=== PATIENT | female | born 1945 | race Caucasian/White ===

== ENCOUNTER 2023-03-11 16:12 | Inpatient (IN) | payer MEDICARE, OTHER ==
[~2023-03-11] VITALS: Ht 160 cm; Wt 49.9 kg
[2023-03-11 16:27] VITALS: BP 101/53; PULSE 102; RESP 18; TEMP 97
[2023-03-11] MEDS ORDERED: LIDOCAINE 5% 1 EA PATCH TP ONE (16:45)
[2023-03-11] MEDS ORDERED: ACETAMINOPHEN 325 MG TAB PO ONE (16:45)
[2023-03-11 20:21] LABS: BASOPHILS % (AUTO) 0.3 % (0.0-2.0); EOSINOPHILS # (AUTO) 0.1 K/uL (0-0.4); EOSINOPHILS % (AUTO) 0.6 % (0.0-4.0); HEMATOCRIT 36.8 % (36-48); HEMOGLOBIN 12.2 g/dL (12.0-16.0); LYMPHOCYTES # (AUTO) 1.7 K/uL (2.5-16.5); LYMPHOCYTES % (AUTO) 14.5 % (20.5-51.1); MEAN CORPUSCULAR HEMOGLOBIN 30 pg (27-31); MEAN CORPUSCULAR HGB CONC 33 g/dL (33-37); MEAN CORPUSCULAR VOLUME 91.2 fL (80-94); MONOCYTES # (AUTO) 1.3 K/uL (0.8-1.0); MONOCYTES % (AUTO) 10.6 % (1.7-9.3); NEUTROPHILS # (AUTO) 8.8 K/uL (1.8-7.7); PLATELET COUNT (AUTO) 197 K/uL (140-450); RED BLOOD CELL COUNT(AUTO) 4.03 MIL/uL (4.20-5.40); RED CELL DISTRIBUTION WIDTH 14.1 % (11.6-13.7); WHITE BLOOD COUNT (AUTO) 11.9 K/uL (4.8-10.8)
[2023-03-11 20:47] LABS: LACTIC ACID 0.8 mmol/L (0.4-2.0)
[2023-03-11 20:58] LABS: ALANINE AMINOTRANSFERASE 16 U/L (12-78); ALBUMIN 2.8 g/dL (3.4-5.0); ALKALINE PHOSPHATASE 107 U/L (50-136); ASPARTATE AMINOTRANSFERASE 20 U/L (15-37); CALCIUM 9.8 mg/dL (8.5-10.1); CARBON DIOXIDE 19.2 mmol/L (21-32); CHLORIDE 107 mmol/L (98-107); CREATININE 1.3 mg/dL (0.6-1.3); GLUCOSE 119 mg/dL (74-106); POTASSIUM 3.2 mmol/L (3.5-5.1); SODIUM SERUM 137 mmol/L (136-145); TOTAL BILIRUBIN 0.7 mg/dL (0.0-1.0); TOTAL PROTEIN, SERUM 6.8 g/dL (6.4-8.2); UREA NITROGEN, BLOOD 21 mg/dL (7-18)
[2023-03-11 20:58] LABS: BILIRUBIN,URINE NEGATIVE (NEGATIVE); BLOOD, URINE 2+ (NEGATIVE); COLOR,URINE YELLOW (YELLOW); LEUKOCYTE ESTERASE ,URINE 3+ (NEGATIVE); NITRITE, URINE POSITIVE (NEGATIVE); PROTEIN,URINE TRACE (NEGATIVE); UGLUCOSE NEGATIVE (NEGATIVE); UROBILINOGEN,URINE 0.2 EU/dL (0.2 - 1)
[2023-03-11 21:02] LABS: APPEARANCE,URINE CLOUDY (CLEAR)
[2023-03-11 21:24] LABS: RBC,URINE 0-5 /HPF (0-5); WBC,URINE 20-60 /HPF (0-5)
[2023-03-11 21:25] LABS: BACTERIA,URINE 3+ /HPF (None Seen); SQUAMOUS EPITHELIAL CELL,UR 0-3 (FEW) /LPF (0-3 (FEW))
[2023-03-11] MEDS ORDERED: cefTRIAXone 1,000 MG VIAL ONE (22:00)
[2023-03-11] MEDS ORDERED: ACETAMINOPHEN EXTRA STRENGTH 500 MG TAB PO ONE (23:15)
[2023-03-11] MEDS ORDERED: NACL 0.9% 1,000 ML IV ONE (23:15)
[2023-03-12] MEDS ORDERED: NACL 0.9% 1,000 ML IV ONE (01:45)
[2023-03-12] MEDS ORDERED: BUS5 PO (04:25)
[2023-03-12] MEDS ORDERED: ESCI5SOL PO (04:25)
[2023-03-12] MEDS ORDERED: ANAS1TAB56 PO (04:25)
[2023-03-12] MEDS ORDERED: OINT1OIN48 TP (04:25)
[2023-03-12] MEDS ORDERED: LOTC TP (04:25)
[2023-03-12] MEDS ORDERED: ATOR10TA51 PO (04:25)
[2023-03-12] MEDS ORDERED: BUPR-10 PO (04:25)
[2023-03-12] MEDS ORDERED: [UNRECOGNIZED DRUG - CODE] PO (04:25)
[2023-03-12] MEDS ORDERED: FAMO-90 PO (04:25)
[2023-03-12] MEDS ORDERED: OMEP-278 PO (04:25)
[2023-03-12] MEDS ORDERED: guaiFENesin DM 200/20 MG-10 ML 10 ML UDC PO PRN (06:35)
[2023-03-12] MEDS ORDERED: POTASSIUM CHLORIDE 10 MEQ TABER PO PRN ×2 (06:35→07:30)
[2023-03-12] MEDS ORDERED: DOCUSATE SODIUM 100 MG GELCAP PO PRN ×2 (06:35→07:30)
[2023-03-12] MEDS ORDERED: ONDANSETRON 4 MG/2 ML VIAL IM/IVP PRN (06:35)
[2023-03-12] MEDS ORDERED: ZOLPIDEM 5 MG TAB PO PRN (06:35)
[2023-03-12] MEDS ORDERED: ACETAMINOPHEN 325 MG TAB PO PRN ×2 (06:35→07:30)
[2023-03-12] MEDS ORDERED: HYDROcodone/APAP 7.5/325 MG 1 TAB PO PRN (06:35)
[2023-03-12] MEDS ORDERED: LEVOTHYROXINE SODIUM 125 MCG PO SCH (07:05)
[2023-03-12] MEDS ORDERED: ESCITALOPRAM OXALATE 20 MG PO SCH (07:05)
[2023-03-12] MEDS ORDERED: MAG SULF 2000 MG/WATER PREMIX 50 ML IV PRN (07:30)
[2023-03-12] MEDS ORDERED: LEVOTHYROXINE 0.025 MG, LEVOTHYROXINE 0.1 MG PO SCH ×2 (07:30)
[2023-03-12] MEDS ORDERED: ESCITALOPRAM 20 MG TAB PO SCH (07:30)
[2023-03-12] MEDS ORDERED: LORazepam 2 MG/ML VIAL IVP PRN (07:30)
[2023-03-12] MEDS ORDERED: ZOLPIDEM 10 MG TAB PO PRN (07:30)
[2023-03-12] MEDS ORDERED: MORPHINE SULFATE 2 MG/ML SYR IVP PRN (07:30)
[2023-03-12] MEDS ORDERED: ONDANSETRON 4 MG/2 ML VIAL IVP PRN (07:30)
[2023-03-12 07:54] VITALS: O2SAT 99
[2023-03-12] MEDS ORDERED: POTASSIUM CHLORIDE 10 MEQ TABER PO SCH (08:08)
[2023-03-12 09:00] VITALS: PULSE 67; RESP 18; O2SAT 98
[2023-03-12] MEDS ORDERED: BUPROPION HCL 100 MG PO SCH (09:00)
[2023-03-12] MEDS ORDERED: NON-FORMULARY ITEM (Atorvastatin Calcium 1 TAB) PO SCH (09:00)
[2023-03-12] MEDS ORDERED: PANTOPRAZOLE 40 MG TABEC PO SCH (09:00)
[2023-03-12] MEDS ORDERED: ATORVASTATIN 20 MG TAB PO SCH (09:00)
[2023-03-12] MEDS ORDERED: FAMOTIDINE 20 MG TAB PO SCH (09:00)
[2023-03-12] MEDS ORDERED: buPROPion 100 MG TAB PO SCH ×2 (09:12→21:00)
[2023-03-12] MEDS: NACL 0.9% 1,000 ML IV SCH ×2 (09:13→21:04)
[2023-03-12] MEDS: busPIRone 5 MG TAB PO SCH ×2 (09:15→21:05)
[2023-03-12 09:31] LABS: BASOPHILS % (AUTO) 0.5 % (0.0-2.0); EOSINOPHILS # (AUTO) 0.2 K/uL (0-0.4); EOSINOPHILS % (AUTO) 3.2 % (0.0-4.0); HEMATOCRIT 35.7 % (36-48); HEMOGLOBIN 11.8 g/dL (12.0-16.0); LYMPHOCYTES # (AUTO) 1.1 K/uL (2.5-16.5); LYMPHOCYTES % (AUTO) 15.2 % (20.5-51.1); MEAN CORPUSCULAR HEMOGLOBIN 30 pg (27-31); MEAN CORPUSCULAR HGB CONC 33 g/dL (33-37); MEAN CORPUSCULAR VOLUME 91.8 fL (80-94); MONOCYTES # (AUTO) 0.9 K/uL (0.8-1.0); MONOCYTES % (AUTO) 12.5 % (1.7-9.3); NEUTROPHILS # (AUTO) 4.9 K/uL (1.8-7.7); NEUTROPHILS % (AUTO) 68.6 % (42.2-75.2); PLATELET COUNT (AUTO) 164 K/uL (140-450); RED BLOOD CELL COUNT(AUTO) 3.89 MIL/uL (4.20-5.40); RED CELL DISTRIBUTION WIDTH 14.2 % (11.6-13.7); WHITE BLOOD COUNT (AUTO) 7.2 K/uL (4.8-10.8)
[2023-03-12 09:50] LABS: ALANINE AMINOTRANSFERASE 14 U/L (12-78); ALBUMIN 2.5 g/dL (3.4-5.0); ALKALINE PHOSPHATASE 97 U/L (50-136); ANION GAP 10.4 (8-16); ASPARTATE AMINOTRANSFERASE 15 U/L (15-37); CALCIUM 9.3 mg/dL (8.5-10.1); CARBON DIOXIDE 22.9 mmol/L (21-32); CHLORIDE 114 mmol/L (98-107); CREATININE 1.2 mg/dL (0.6-1.3); GLUCOSE 100 mg/dL (74-106); POTASSIUM 3.3 mmol/L (3.5-5.1); SODIUM SERUM 144 mmol/L (136-145); TOTAL BILIRUBIN 0.6 mg/dL (0.0-1.0); TOTAL PROTEIN, SERUM 6.3 g/dL (6.4-8.2); UREA NITROGEN, BLOOD 17 mg/dL (7-18)
[2023-03-12 12:00] VITALS: BP 97/45; PULSE 64; PULSE 65; RESP 18; TEMP 98.2; O2SAT 98
[2023-03-12 16:00] VITALS: BP 102/57; PULSE 63; RESP 16; TEMP 98.3; O2SAT 98
[2023-03-12 20:00] VITALS: PULSE 72; PULSE 74; RESP 16; O2SAT 98
[2023-03-12 22:26] VITALS: BP 98/46; PULSE 72; RESP 16; TEMP 99.5
[2023-03-13] MEDS ORDERED: LEVOTHYROXINE 0.025 MG, LEVOTHYROXINE 0.1 MG PO SCH ×2 (06:30)
[2023-03-13] MEDS ORDERED: ESCITALOPRAM 20 MG TAB PO SCH (09:00)
== END 2023-03-12 22:45 | disposition short-term general hospital (02) | DRG 690 ==
LOC: MED 16:12 → MTU 03-12 06:36
PROVIDERS: ADMIT Student in an Organized Health Care Education/Training Program; ATTEND Student in an Organized Health Care Education/Training Program
DX: N39.0 Urinary tract infection, site not specified (principal); E44.0 Moderate protein-calorie malnutrition; Z68.1 Body mass index [BMI] 19.9 or less, adult; E87.6 Hypokalemia; Z66 Do not resuscitate; K21.9 Gastro-esophageal reflux disease without esophagitis; E03.9 Hypothyroidism, unspecified; F32.A Depression, unspecified; M16.0 Bilateral primary osteoarthritis of hip; F41.9 Anxiety disorder, unspecified; Z87.442 Personal history of urinary calculi; Z88.0 Allergy status to penicillin; Z88.5 Allergy status to narcotic agent; Z90.5 Acquired absence of kidney; B96.20 Unspecified Escherichia coli [E. coli] as the cause of diseases classified elsewhere
CPT/HCPCS: 36415; 70450; 72125; 72128; 80053; 81001; 83605; 83735; 84443; 85025; 87040; 87086; 93005; 96361; 96365; 97112; 97163-GP; 99291; J0696; J1644; J7030; J7060